=== PATIENT | female | born 1960 | race Caucasian/White ===

== ENCOUNTER 2022-06-17 23:21 | Emergency (ER) | payer BC ==
[2022-06-17] MEDS ORDERED: Sodium Chloride 0.9% 10 ML Syringe FLUSH PRN (23:59)
[2022-06-18] MEDS: Sodium Chloride 0.9% 1,000 ML IV ONE (01:00)
[2022-06-18 01:26] LABS: ESTIMATED GFR 100 mL/min (>60)
== END 2022-06-18 02:20 | disposition home or self-care (01) ==
LOC: JP.ED 23:21
DX: U07.1 COVID-19 (principal); R19.7 Diarrhea, unspecified; E86.0 Dehydration; F17.210 Nicotine dependence, cigarettes, uncomplicated; I10 Essential (primary) hypertension; Z95.5 Presence of coronary angioplasty implant and graft; Z20.822 Contact with and (suspected) exposure to COVID-19
CPT/HCPCS: 36415; 71046; 80053; 82728; 85025; 85379; 86140; 87493; 87635; 96360; 99281; 99284; J7030; U0002

== ENCOUNTER 2023-03-18 13:25 | Emergency (ER) | payer OTHER, BC | END 2023-03-18 14:39 | disposition home or self-care (01) | LOC: JP.ED 13:25 | DX: R07.9 Chest pain, unspecified (principal); M54.9 Dorsalgia, unspecified; J44.9 Chronic obstructive pulmonary disease, unspecified; E78.00 Pure hypercholesterolemia, unspecified; I10 Essential (primary) hypertension; F17.210 Nicotine dependence, cigarettes, uncomplicated; Z88.1 Allergy status to other antibiotic agents; Z91.040 Latex allergy status; Z88.0 Allergy status to penicillin; Z88.2 Allergy status to sulfonamides; Z79.899 Other long term (current) drug therapy; Z86.16 Personal history of COVID-19; Z90.710 Acquired absence of both cervix and uterus; V40.0XXA Car driver injured in collision with pedestrian or animal in nontraffic accident, initial encounter; Y92.410 Unspecified street and highway as the place of occurrence of the external cause | CPT/HCPCS: 99285 ==

== ENCOUNTER 2024-06-30 21:31 | Emergency (ER) | payer MEDICARE ==
[2024-06-30] MEDS: Mineral Oil 133 ML BOTTLE RECTAL ONE (22:11)
[2024-06-30] MEDS: Magnesium Citrate Solution 296 ML Bottle PO ONE (23:05)
== END 2024-06-30 23:06 | disposition home or self-care (01) ==
LOC: JP.ED 21:31
DX: K59.00 Constipation, unspecified (principal); E78.00 Pure hypercholesterolemia, unspecified; I10 Essential (primary) hypertension; J44.9 Chronic obstructive pulmonary disease, unspecified; E03.9 Hypothyroidism, unspecified; Z90.710 Acquired absence of both cervix and uterus; F17.210 Nicotine dependence, cigarettes, uncomplicated; Z79.899 Other long term (current) drug therapy; Z88.5 Allergy status to narcotic agent; Z88.8 Allergy status to other drugs, medicaments and biological substances; Z88.2 Allergy status to sulfonamides; Z88.0 Allergy status to penicillin; Z91.040 Latex allergy status
CPT/HCPCS: 99283; A9270-GY